=== PATIENT | female | born 1990 | race Caucasian/White ===

== ENCOUNTER → 2019-12-09 15:54 | Outpatient (CLI) | payer OTHER, SELFPAY ==
--- NOTE | ~2019-12-09 | US_ITS ---
US OB <= 14 weeks fetus DATE: 12/09/2019 16:18 INDICATION: age determination TECHNIQUE: Real-time imaging and Doppler analysis COMPARISON: None FINDINGS: The uterus measures 12.2 cm height, 6.5 cm AP and 8.5 cm transverse dimension. A normally shaped intrauterine gestational sac is identified. Normal amount amniotic fluid. kaya e and yolk sac are identified. heart rate of 167 bpm. [place]-rump length measures 3.92 cm, consistent with 10 weeks 6 days +/- 1 week estimated gestational age; KATARZYNA is 06/30/2020 compared to 07/04/2020 by LMP. Right ovary 3.3 x 2.5 x 3.5 cm Left ovary 3.4 x 2.3 x 3.2 cm. No pelvic mass lesion or abnormal pelvic fluid collection is detected. IMPRESSION: Estimated gestational age of 10 weeks 6 days +/- 1 week; KATARZYNA by ultrasound is 06/30/2020 Reviewed, dictated and finalized at Location [facility]. Reviewed, dictated and finalized at location B. IMPRESSION: Estimated gestational age of 10 weeks 6 days +/- 1 week; KATARZYNA by thee ma is 06/30/2020
== END ==
PROVIDERS: PCP Physician Assistant; Visit Provider Nurse Practitioner
DX: Z36.87 Encounter for antenatal screening for uncertain dates (principal)
CPT/HCPCS: 76801

== ENCOUNTER → 2020-02-06 10:25 | Outpatient (CLI) | payer OTHER, SELFPAY ==
--- NOTE | ~2020-02-06 | US_ITS ---
EXAMINATION: US OB >= 14 weeks Fetus DATE: 02/06/2020 10:55 INDICATION: anatomic survey. TECHNIQUE: Real-time ultrasound of the pelvis was performed. COMPARISON: Ultrasound 12/09/2019 FINDINGS: There is a single living fetus in variable presentation. The placenta is anterior, 4.1 cm from the c ervix. heart rate is 154 beats per minute (bpm). The amniotic fluid volume is subjectively norm al. The following biometric data were obtained: Biparietal diameter (BPD): 4.5 cm; head circumference (HC): 16.6 cm; abdominal circumference (AC): 14 .3 cm; femur length (FL): 2.9 cm. These measurements are concordant. Estimated weight is 284 g +/- 43 g, which correlates with 46th percentile when 06/30/20 is used as estimated date of delivery. As single measurements, these parameters are each equal to the following estimated gestational ages w ith ranges of +/- 2 standard deviations: BPD: 19 weeks 4 days (17 weeks 6 days - 21 weeks 2 days). HC: 19 weeks 2 days (17 weeks 6 days - 20 weeks 6 days). AC: 19 weeks 5 days (17 weeks 4 days - 21 weeks 5 days). FL: 18 weeks 6 days (17 weeks 0 days - 20 weeks 5 days). estimated gestational age based solely on measurements from this exam is 19 weeks 3 days +/- 1 weeks 2 days. The cerebral ventricles, cerebellum, cisterna magna, nuchal fold, nose/lip, and visualized portions o f the spine are normal. The heart is normal. The diaphragm, stomach, kidneys, and bladder are normal. There are two umbilical arteries to yield a 3-vessel cord. The cord insertion is normal. IMPRESSION: 1. Single living fetus in variable presentation. 2. Estimated weight is 284 g +/- 43 g, which correlates with 46th percentile when 06/30/20 is u sed as estimated date of delivery. This date was set by ultrasound on 12/09/2019. 3. Normal anatomic survey. Reviewed, dictated and finalized at location A. ERTING TECHNICIAN IMPRESSION: 1. Single living fetus in variable presentation. 2. Estimated weight is 284 g +/- 43 g, which correlates with 46th percen tile when 06/30/20 is used as estimated date of delivery. This date was set by [facility] on 12/09/2019. 3. Normal anatomic survey.
== END ==
PROVIDERS: Visit Provider Obstetrics & Gynecology Gynecology
DX: Z34.92 Encounter for supervision of normal pregnancy, unspecified, second trimester (principal); Z3A.19 19 weeks gestation of pregnancy
CPT/HCPCS: 76805

== ENCOUNTER → 2020-05-30 15:21 | Outpatient (CLI) | payer OTHER, SELFPAY ==
--- NOTE | ~2020-05-30 | US_ITS ---
EXAMINATION: US OB follow up DATE: 05/30/2020 15:45 INDICATION: Large for gestational age. TECHNIQUE: Real-time transabdominal obstetric ultrasound. FINDINGS: Comparison to multiple prior studies sequentially, with oldest reviewed study dated 020. There is a single living fetus in vertex presentation. The placenta is anterior without placenta pre via. cardiac activity and movement is noted with a heart rate of 122 beats per minute. T he amniotic fluid volume is normal. CAT[place] measures 20.9 cm (normal range 7.9-24.9 cm). The following biometric data were obtained: BPD: 89mm corresponds to gestational age 35 weeks 5 days. Head circumference: 321mm corresponds to gestational age 36 weeks 1 days. Abdominal circumference: 317mm corresponds to gestational age 35 weeks 5 days. Femur length: 68mm corresponds to gestational age 35 weeks 0 days. Estimated weight: 2706grams +/- 406grams, 48.4 percentile. IMPRESSION: 1. Single living intrauterine in vertex presentation with an estimated gestational age of 35 weeks 4 days by inititial ultrasound. Appropriate interval growth. 2. Normal placenta. Reviewed, dictated and finalized at location A. IMPRESSION: 1. Single living intrauterine in vertex presentation with an estimat ed gestational age of 35 weeks 4 days by inititial ultrasound. Appropriate int erval growth. 2. Normal placenta.
== END ==
PROVIDERS: Visit Provider Obstetrics & Gynecology Gynecology
DX: O36.63X0 Maternal care for excessive fetal growth, third trimester, not applicable or unspecified (principal); Z3A.35 35 weeks gestation of pregnancy
CPT/HCPCS: 76816

== ENCOUNTER 2020-06-28 05:01 | Inpatient (IN) | payer OTHER, SELFPAY ==
[2020-06-28] VITALS (208 sets, daily range): BP systolic 80–160; BP diastolic 39–102; PULSE 62–141; RESP 16–18; TEMP 36.4–36.8; O2SAT 83–100; BMI 36.1
--- NOTE | 2020-06-28 05:01 | LDADM ---
This patient, Amisha Wu, was admitted to Labor/Delivery/Recovery 104 on 06/28/20 at 05:01. Plans for labor, pain management and were discussed with patient. Patient/family oriented to hospital policies and general routines including ID bracelet, bed and alarms, visiting hours, pain management, procedures, bathroom and other care routines, personal items, smoking policy, room service/diet and guest tray routines, infant security routines, and visiting hours. Patient/Family are encouraged to report perceived risks to care and to ask questions if they do not understand what they are told or what they should do. See OBIX for further documentation.
[2020-06-28 05:31] LABS: Basophils Percent Auto 0.3 % (0.2-1.2); Eosinophils Absolute Auto 0.2 K/mm3 (0-0.3); Eosinophils Percent Auto 1.5 % (0-4.4); Hematocrit 36.5 % (37.0-47.0); Hemoglobin 12.2 g/dL (12.0-15.0); Immature Granulocyte Absolute 0.22 K/mm3 (0.00-0.031); Lymphocytes Absolute Auto 3.02 K/mm3 (0.9-3.2); Lymphocytes Percent Auto 26.9 % (18.3-44.2); Mean Corpuscular HGB Conc 33.4 g/dl (32-36); Mean Corpuscular Hemoglobin 28.4 pg (26-34); Mean Corpuscular Volume 84.9 fl (80-100); Mean Platelet Volume 10.9 fl (7.4-10.4); Monocytes Absolute Auto 0.6 K/mm3 (0.1-0.6); Monocytes Percent Auto 5.4 % (2.6-8.5); Neutrophils Absolute Auto 7.2 K/mm3 (1.3-6.7); Neutrophils Percent Auto 63.9 % (45.5-73.1); Platelet Count Result 289 k/mm3 (150-375); Red Cell Distribution Width 13.2 % (11.5-14.5); White Blood Count 11.2 K/mm3 (4.5-10.0)
[2020-06-28] MEDS: LACTATED RINGERS 1,000 ML 125 ML IV CONT ×2 (05:55→09:44)
[2020-06-28] MEDS: OXYTOCIN 30 UNITS/NS 500 ML 30 UNITS/500 ML BAG IV CONT (05:56)
--- NOTE | 2020-06-28 06:05 | WPDANESEPP ---
Anes - Eval Pre Procedure Procedure: labor epidural Date/Time: 06/28/20 06:05 Surgeon: alannah Pre Op Diagnosis: Induction of Labor Patient Data Age: 29 Gender: F Height: 1.7 m Weight: 104.5 kg Last Vital Signs Temp 36.4 C L 06/28/20 05:16 Pulse 90 06/28/20 06:00 Resp 18 06/28/20 05:16 BP 120/67 06/28/20 06:00 Allergies Allergy/AdvReac Type Severity Reaction Status Date / Time No Known Allergies Allergy Verified 06/18/20 14:34 Home Medications Medication Instructions Recorded Confirmed Type aspirin 81 mg tablet,delayed 81 mg PO DAILY 02/24/20 06/28/20 History release cholecalciferol (vitamin D3) 1,250 1,250 mcg PO WEEKLY 02/24/20 06/28/20 History mcg (50,000 unit) capsule prenat.vits,ryley,vwb-mxgx-libqa 1 tablet PO DAILY 02/24/20 06/28/20 History escitalopram oxalate 10 mg tablet 10 mg PO DAILY #30 tablet 03/30/20 06/28/20 Rx Laboratory Tests 06/28/20 06/28/20 05:22 05:22 WBC 11.2 K/mm3 H K/mm3 (4.5-10.0) RBC 4.30 M/mm3 M/mm3 (4.2-5.4) Hgb 12.2 g/dL g/dL (12.0-15.0) Hct 36.5 % L % (37.0-47.0) MCV 84.9 fl fl (80-100) MCH 28.4 pg pg (26-34) MCHC 33.4 g/dl g/dl (32-36) RDW 13.2 % % (11.5-14.5) Plt Count 289 k/mm3 k/mm3 (150-375) MPV 10.9 fl H fl (7.4-10.4) Immature Gran % (Auto) 2.0 % H % (0-0.5) Neut % (Auto) 63.9 % % (45.5-73.1) Lymph % (Auto) 26.9 % % (18.3-44.2) [place] % (Auto) 5.4 % % (2.6-8.5) Eos % (Auto) 1.5 % % (0-4.4) Baso % (Auto) 0.3 % % (0.2-1.2) Lymph # (Auto) 3.02 K/mm3 K/mm3 (0.9-3.2) [place] # (Auto) 0.6 K/mm3 K/mm3 (0.1-0.6) Eos # (Auto) 0.2 K/mm3 K/mm3 (0-0.3) Baso # (Auto) 0.0 K/mm3 K/mm3 (0.0-0.1) Abs Immat Gran (auto) 0.22 K/mm3 H K/mm3 (0.00-0.031) Absolute Neuts (auto) 7.2 K/mm3 H K/mm3 (1.3-6.7) Absolute Nucleated RBC 0.0 K/mm3 K/mm3 (0.0-0.012) Nucleated RBC % 0.0 % % (0.0-0.2) RPR Pending Patient hx anesthesia problems: none Family hx anesthesia problems: [facility] Past Medical History Medical History Depression Family History Family History Mother Patient's mother is in good health Father Patient's father is in good health Sibling Patient's sister is in good health Lung nodules Grandparent Malignant neoplasm of prostate Family history of lung cancer Family history of alcoholism Social History Social History Smoking status: Never smoker Second hand tobacco smoke exposure: No Alcohol intake: never Substance use: never Spiritual care concerns: No Exam Day of Procedure 06/28/20 06:05
--- NOTE | 2020-06-28 07:46 | WPDOBADMIT ---
Obstetrics - Admit Note Admission Note: record reviewed. No pertinent additions to the history and/or any subsequent changes in the physical findings that are not consistent with the expected course of the were found. Additions to the history and/or subsequent changes in the physical findings follow. Here for MIL. Cervix 1-2/th/high not able to AROM. FHTs reactive 110's. Plan pitocin
--- NOTE | 2020-06-28 09:59 | WPDANESEPPF ---
Anes - Initial Pre Proc Eval Date/Time: 06/28/20 09:59 Surgeon: Melanie Goodrich MD Pre Op Diagnosis: Induction of Labor Patient Data Age: 29 Gender: F Height: 1.7 m Weight: 104.5 kg Last Vital Signs Temp 36.7 C 06/28/20 09:30 Pulse 80 06/28/20 09:30 Resp 18 06/28/20 05:16 BP 128/77 06/28/20 09:30 Pulse Ox 99 06/28/20 09:56 Allergies Allergy/AdvReac Type Severity Reaction Status Date / Time No Known Allergies Allergy Verified 06/18/20 14:34 Home Medications Medication Instructions Recorded Confirmed Type aspirin 81 mg tablet,delayed 81 mg PO DAILY 02/24/20 06/28/20 History release cholecalciferol (vitamin D3) 1,250 1,250 mcg PO WEEKLY 02/24/20 06/28/20 History mcg (50,000 unit) capsule prenat.vits,ryley,qrq-cizp-mfpro 1 tablet PO DAILY 02/24/20 06/28/20 History escitalopram oxalate 10 mg tablet 10 mg PO DAILY #30 tablet 03/30/20 06/28/20 Rx Laboratory Tests 06/28/20 06/28/20 06/28/20 05:22 05:22 05:22 WBC 11.2 K/mm3 H K/mm3 (4.5-10.0) RBC 4.30 M/mm3 M/mm3 (4.2-5.4) Hgb 12.2 g/dL g/dL (12.0-15.0) Hct 36.5 % L % (37.0-47.0) MCV 84.9 fl fl (80-100) MCH 28.4 pg pg (26-34) MCHC 33.4 g/dl g/dl (32-36) RDW 13.2 % % (11.5-14.5) Plt Count 289 k/mm3 k/mm3 (150-375) MPV 10.9 fl H fl (7.4-10.4) Immature Gran % (Auto) 2.0 % H % (0-0.5) Neut % (Auto) 63.9 % % (45.5-73.1) Lymph % (Auto) 26.9 % % (18.3-44.2) [place] % (Auto) 5.4 % % (2.6-8.5) Eos % (Auto) 1.5 % % (0-4.4) Baso % (Auto) 0.3 % % (0.2-1.2) Lymph # (Auto) 3.02 K/mm3 K/mm3 (0.9-3.2) [place] # (Auto) 0.6 K/mm3 K/mm3 (0.1-0.6) Eos # (Auto) 0.2 K/mm3 K/mm3 (0-0.3) Baso # (Auto) 0.0 K/mm3 K/mm3 (0.0-0.1) Abs Immat Gran (auto) 0.22 K/mm3 H K/mm3 (0.00-0.031) Absolute Neuts (auto) 7.2 K/mm3 H K/mm3 (1.3-6.7) Absolute Nucleated RBC 0.0 K/mm3 K/mm3 (0.0-0.012) Nucleated RBC % 0.0 % % (0.0-0.2) RPR Pending Blood Type O Positive Antibody Screen Negative Patient hx anesthesia problems: none Family hx anesthesia problems: none [facility] Past Medical History Medical History Depression Family History Family History Mother Patient's mother is in good health Father Patient's father is in good health Sibling Patient's sister is in good health Lung nodules Grandparent Malignant neoplasm of prostate Family history of lung cancer Family history of alcoholism Social History Social History Smoking status: Never smoker Second hand tobacco smoke exposure: No Alcohol intake: never Substance use: never Spiritual care concerns: No Anes - Eval Final PreProcedure Day of Procedure 06/28/20 09:59 Patient weight: overweight Heart: regular rate and rhythm Lungs: clear to auscultation and normal air movement Airway: Mallampati scale class II Neurological: alert and oriented Last oral intake: >/= 8 hours ASA classification: II Emergent: no Anesthetic plan: proceed Anesthesia type and monitoring: regional epidural Informed Consent: The patient's anesthetic plan and its attendant risks and benefits were discussed with the patient/family/POA. Questions were solicited and answers provided to the satisfaction of the patient/family/POA.
--- NOTE | 2020-06-28 12:47 | PM.OBPNLAB ---
Pain Control Date/time seen: 06/28/20 12:47 Pain control: epidural Pelvic Exam Dilation (cm): 25 Effacement (%): 50 station: -2 Amniotic membrane status: Ruptured (clear) Status status: Category l
[2020-06-28 13:26] LABS: Rapid Plasma Reagin Non-Reactive (NonReactive)
--- NOTE | 2020-06-28 17:59 | PM.OBPRVD ---
OB - Delivery Note Procedure Delivery date: 06/28/20 Procedure: events: Labor Induction Intrapartal events: None Induction method: AROM and per pitocin protocol Delivery monitor: external FHT and internal uterine Route of delivery: Laceration Description: Perineal - 2nd Degree Delivery repair: vicryl (3-0 vicryl) Specimen: Yes (placenta) Quantitative Blood Loss (ml): 125 Anesthesia type: Epidural Disposition: floor Baby Date of : 06/28/20 Weeks of gestation at delivery: 39 presentation: vertex position: Right Occiput Anterior (head asynclitic ) Placenta delivery description: Spontaneous cord vessel description: 3 Vessels and Nuchal Cord Narrative: peds present at delivery no Apgars or weight given yet
--- NOTE | 2020-06-28 18:01 | PM.OBDSVD ---
DS: Admitting Diagnosis Admitting Diagnosis Admitting Diagnosis: IUP 39 wks DS: Discharge Diagnosis Discharge Diagnosis (1) 39 weeks gestation of : Code(s): Z3A.39 - 39 weeks gestation of Status: Acute (2) (normal spontaneous vaginal delivery): Code(s): O80 - Encounter for full-term uncomplicated delivery Status: Acute OB - DS: Summary OB Procedures : Ultrasound OB Procedures Intrapartum: Spontaneous Vag Delivery OB Procedures: : None Peripartum Data Delivery Method: Natural Vaginal Laceration Description: Perineal - 2nd Degree Status at Discharge Functional status at discharge: independent ambulation Overall status at discharge: patient is progressing back to baseline Time Spent with Patient Time attestation: Total time spent providing and/or coordinating discharge services: DS: Data Data Completed and Pending Labs on day of discharge: Labs from last 24 hours 06/28/20 06/28/20 06/28/20 05:22 05:22 05:22 WBC 11.2 H RBC 4.30 Hgb 12.2 Hct 36.5 L MCV 84.9 MCH 28.4 MCHC 33.4 RDW 13.2 Plt Count 289 MPV 10.9 H Immature Gran % (Auto) 2.0 H Neut % (Auto) 63.9 Lymph % (Auto) 26.9 [place] % (Auto) 5.4 Eos % (Auto) 1.5 Baso % (Auto) 0.3 Lymph # (Auto) 3.02 [place] # (Auto) 0.6 Eos # (Auto) 0.2 Baso # (Auto) 0.0 Abs Immat Gran (auto) 0.22 H Absolute Neuts (auto) 7.2 H Absolute Nucleated RBC 0.0 Nucleated RBC % 0.0 RPR Non-reactive Blood Type O Positive Antibody Screen Negative Discharge Plan Discharge Attending physician on discharge: Melanie Goodrich Discharging Clinician: Melanie Goodrich Anticipated Discharge Date/Time: 06/30/20 18:02 Patient Disposition: Home, Self-Care Activity: may shower and pelvic rest Diet: regular Discharge Instructions: Education: Mom and Baby Guide Given to: Mother Follow-Up: Call your delivering provider's office for an appointment to be seen in: 6 Weeks Mom and baby should come to the [facility] for the follow-up appointment. Appointment Date/Time: July 01, 2020 at 11:00 am What to expect at your follow-up visit: Physical Assessment Call [phone] if you are unable to keep your appointment time. BREAST CARE: * Wear a snug supportive bra. * For engorgement discomfort: Breast Feeding: * Apply warm moist washcloths * Express milk as needed to relieve engorgement * Wear loose clothing * For sore nipples: * Identify correct latch-on * Apply warm moist washcloths before and after nursing * Air dry nipples after nursing * May apply Lansinoh cream to nipples PERINEAL CARE: * Until bleeding stops, use your nilam bottle after urinating * Change your pad frequently throughout the day * You may take sitz baths several times a day (fill your bathtub with warm water and soak for 20 minutes.) Do NOT bathe in the water * No tub baths until seen by your physician - You may shower ACTIVITY: * Rest as much as possible. * Do not exercise or lift anything heavier than your baby (such as laundry or other children.) * Avoid stairs or driving as much as possible. * Do not put anything into the vagina. No douching, tampons, or sexual activity until seen by physician. NOTIFY PHYSICIAN IF YOU HAVE ANY QUESTIONS OR IF ANY OF THE FOLLOWING SYMPTOMS OCCUR: * If your stitches become red, swollen, or more painful than what you have experienced in the hospital. * If your vaginal bleeding becomes foul smelling. * If your vaginal bleeding becomes more heavy than a period or if your bleeding changes from pink to bright red. However, you may pass an occasional walnut-sized clot once or twice for the first week . * If you experience a sharp, shooting pain in you calves. * If you discover a hard, reddened area on your breast or if you exper
[2020-06-28] MEDS: OXYTOCIN 30 UNITS/NS 500 ML 30 UNITS/500 ML BAG 125 UNITS IV CONT (18:08)
[2020-06-28] MEDS: BENZOCAINE 20% AER SPR (*SP) 56 GM CAN 1 SPRAY TOPICAL (19:44)
[2020-06-28] MEDS: IBUPROFEN 600 MG TABLET PO (19:44)
[2020-06-28] MEDS: WITCH HAZEL 40 PADS 1 PAD TOPICAL (19:44)
[2020-06-28] MEDS: LANOLIN (LANSINOH) 7.5 GM CREAM 1 APPLIC TOPICAL (19:44)
--- NOTE | 2020-06-28 20:48 | OBPPTRN ---
Patient transferred to post room #281 via wheelchair with in crib. Support person present. Oriented to unit, room, information board, rooming in, admission packet and security measures. Patient verbalizes understanding.
[2020-06-29 06:04] LABS: Hematocrit 30.9 % (37.0-47.0); Hemoglobin 10.2 g/dL (12.0-15.0)
[2020-06-29 08:05] VITALS: BP 123/79; PULSE 77; RESP 18; TEMP 36.7; O2SAT 100
--- NOTE | 2020-06-29 08:54 | WPDANLDPN2 ---
Anes-Prog Note L&D Date/Time: 06/29/20 08:54 Comfortable throughout: labor Neuraxial method: epidural Epidural/Spinal procedure site: clean & non-tender Neuro status: Neuro function grossly intact. Cardiovascular status: normal Vital Signs: Last Vital Signs Temp 36.8 C 06/28/20 23:45 Pulse 77 06/28/20 23:45 Resp 16 06/28/20 23:45 BP 130/78 06/28/20 23:45 Pulse Ox 100 06/28/20 17:46 Pain score (VAS): no c/o pain I/O: Intake & Output 06/28/20 06/29/20 06/29/20 23:59 07:59 15:59 Output Total 20 Balance -20 Post-procedural complaints: none Patient feedback: Patient satisfied with anesthetic care.
[2020-06-29] MEDS: IBUPROFEN 600 MG TABLET PO (10:30)
[2020-06-29] MEDS: MULTIVIT/MIN/PREN/FOL AC/IRON TABLET 1 TAB PO (10:31)
[2020-06-29] MEDS: DOCUSATE SODIUM 100 MG CAPSULE PO ×2 (10:31→17:26)
[2020-06-29] MEDS: ESCITALOPRAM OXALATE 10 MG TABLET PO (10:31)
--- NOTE | 2020-06-29 11:20 | PC.NURSE ---
Consult with pt., mother reports this is 3rd child to breastfeed. Mother states left nipple is inverted and has issues with this latching to left. Mother will attempt to left, then move to right and attempt again to left. If does not nurse on left she will pump for 15 minutes. First child would not latch and used a nipple shield, for both breast, 2nd child latch to both without issue. Mother does not want to use the shield. Suggested mother pump on left breast a few minutes before latch or use the Latch Assist. Offered and explained the latch assist, mother will attempt calling out if assist is needed. Mother states it has been 5 hours from last feeding. Infant was circumcised and has been sleepy. Reviewed feeding cues, frequencies, duration of feedings, feeding elimination flow sheet, and signs of adequate intake. Demonstrated stimulation techniques to wake infant for feeding, Infant awake with feeding cues noted after a few minutes of stimulation. Assisted with infant to breast. Reviewed positioning/alignment in cross cradle, holding breast in U hold and guided asymmetrical latch on. Infant was able to latch correctly. Infant nursed eagerly, with steady draws and frequent swallowing noted. Reviewed signs of a correct latch, effective nursing and suck swallow ratio. Infant was able to maintain latch without discomfort to mother. Nipple care reviewed. Advised to stimulate while feeding to keep awake and nursing effectively for increased intake, stimulation of milk supply and assisting with maintaining deep latch. Instructed mother to call out for RN assistance if she is unable to latch infant for feeding or she has discomfort with nursing. Instructed feeding should be initiated three hours from start of last feeding or if feeding cues are noted before. Mother voiced understanding of information shared.
[2020-06-29 11:48] VITALS: BP 131/78; PULSE 92; RESP 18; TEMP 36.4; O2SAT 100
[2020-06-29 17:20] VITALS: BP 111/75; PULSE 80; RESP 18; TEMP 37.1
== END 2020-06-29 20:05 | disposition home or self-care (01) | DRG 807 ==
LOC: ANHLDR 18:02 → ANHOB2 06-29 12:18 → ANHLDR 07-01 09:36 → ANHOB2 07-01 09:36
PROVIDERS: Admitting Provider Obstetrics & Gynecology Gynecology; PCP Physician Assistant; Visit Provider Obstetrics & Gynecology
DX: O69.81X0 Labor and delivery complicated by cord around neck, without compression, not applicable or unspecified (principal); Z37.0 Single live birth; Z3A.39 39 weeks gestation of pregnancy; O36.8330 Maternal care for abnormalities of the fetal heart rate or rhythm, third trimester, not applicable or unspecified; O70.1 Second degree perineal laceration during delivery; O99.344 Other mental disorders complicating childbirth; F41.9 Anxiety disorder, unspecified; F32.9 Major depressive disorder, single episode, unspecified
CPT/HCPCS: 36415; 85014; 85018; 85025; 86592; 86850; 86900; 86901; 88307; A9270; J2590; J2795; J7120

== ENCOUNTER → 2022-10-23 15:20 | Outpatient (CLI) | payer OTHER, SELFPAY ==
--- NOTE | ~2022-10-23 | US_ITS ---
US axilla 10/23/2022 15:43 Indication: Axillary mass Procedure: High-resolution bilateral axillary ultrasound Comparison: No prior studies for comparison. Findings: Normal heterogeneous echotexture. No discrete solid or cystic mass in either axilla. Impression: 1: Normal bilateral axillary ultrasound. Reviewed, dictated and finalized at location A. Impression: 1: Normal bilateral axillary ultrasound.
== END ==
PROVIDERS: PCP Advanced Practice Midwife; Visit Provider Advanced Practice Midwife
DX: N63.31 Unspecified lump in axillary tail of the right breast (principal); N63.32 Unspecified lump in axillary tail of the left breast
CPT/HCPCS: 76882